=== PATIENT | male | born 1990 | race Hispanic/Latino ===

== ENCOUNTER 2020-02-22 14:50 | Emergency (ER) | payer MEDICAID, SELFPAY ==
--- NOTE | ~2020-02-22 | CT_ITS ---
EXAMINATION: CT abdomen pelvis w con EXAM DATE: 02/22/2020 16:24 INDICATION: Upper abdominal pain, hx pancreatitis . TECHNIQUE: Spiral CT of the abdomen and pelvis was performed following intravenous injection of 100 m L Omnipaque 350. Axial, coronal and sagittal images were reviewed. The dose-length product (DLP) fo r this examination was 465.55 mGy-cm. The exposure was tailored according to patient size (auto mA e xposure control), and iterative reconstruction (ASIR) was used as additional dose reduction technique . Comparison is made to prior examination from 10/09/2017. FINDINGS: Liver has a nodular contour with caudate and left liver lobe hypertrophy. Appearance consis tent with cirrhosis. The liver, spleen, adrenal glands and pancreas are otherwise unremarkable. The re are surgical clips in the gallbladder fossa. Some biliary duct dilation which is common finding f ollowing cholecystectomy. Portal and splenic veins are patent. Kidneys enhance symmetrically. Ther e is no hydronephrosis. There is a 3 mm left inferior calyceal stone. The prostate is unremarkable. The bladder is unremarkable. There is no retroperitoneal or pelvic lymphadenopathy. The appendix is normal. The stomach and small bowel are unremarkable. There is expected amount of c olonic stool. No free intraperitoneal gas. The heart is normal in size. There are no pericardial or pleural effusions. The lung bases are unremarkable. There are no osteoblastic or osteolytic les ions identified. Small umbilical fat-containing hernia. IMPRESSION: 1. No acute intra-abdominal findings. 2. Left nephrolithiasis. 3. Cirrhosis. Reviewed, dictated and finalized at location B. C BUSTER
[2020-02-22 15:18] VITALS: BP 141/92; PULSE 79; RESP 18; TEMP 35.6; O2SAT 96
--- NOTE | 2020-02-22 15:21 | PC.NURSE ---
patient brought back to ED room 11 with abdomen pain and nausea. hx of pancreatitis. patient is alert and oriented. does not appear to be in any distress. laughing and talking with his SO at the bedside. assessments documented. SL inserted. labs drawn.
[2020-02-22 15:22] LABS: Basophils Absolute Auto 0.1 K/mm3 (0.0-0.1); Basophils Percent Auto 1.2 % (0.2-1.2); Eosinophils Absolute Auto 0.4 K/mm3 (0-0.3); Eosinophils Percent Auto 5.2 % (0-4.4); Hematocrit 48.6 % (42.0-52.0); Hemoglobin 17.2 g/dL (14.0-18.0); Immature Granulocyte Absolute 0.01 K/mm3 (0.00-0.031); Immature Granulocyte Percent A 0.1 % (0-0.5); Lymphocytes Absolute Auto 2.57 K/mm3 (0.9-3.2); Lymphocytes Percent Auto 38.5 % (18.3-44.2); Mean Corpuscular HGB Conc 35.4 g/dl (32-36); Mean Corpuscular Hemoglobin 31.7 pg (26-34); Mean Corpuscular Volume 89.5 fl (80-100); Mean Platelet Volume 12.5 fl (7.4-10.4); Monocytes Absolute Auto 0.4 K/mm3 (0.1-0.6); Monocytes Percent Auto 6.6 % (2.6-8.5); Neutrophils Absolute Auto 3.2 K/mm3 (1.3-6.7); Neutrophils Percent Auto 48.4 % (45.5-73.1); Platelet Count Result 137 k/mm3 (150-375); Red Blood Count 5.43 M/mm3 (4.6-6.20); Red Cell Distribution Width 12.3 % (11.5-14.5); White Blood Count 6.7 K/mm3 (4.5-10.0)
[2020-02-22 15:31] LABS: Add Urine Microscopic? YES; Appearance Urine Clear (Clear); Bilirubin Urine Negative (Negative); Blood Urine Negative (Negative); Color Urine Yellow (Yellow); Glucose Urine UA Negative (Negative); Ketones Urine Negative (Negative); Leukocyte Esterase Ur Negative LEU/UL (Negative); Mucus Urine Rare /lpf; Nitrate Urine Negative (Negative); Protein Urine Negative (Negative); RBC Urine 0-2 /hpf (0-2); Specific Grav Ur 1.023 (1.001-1.035); Squamous Epithelial Cell Urine Rare /hpf (Few); WBC Urine 0-3 /hpf
--- NOTE | 2020-02-22 15:33 | PC.NURSE ---
patient reminded that we do need a urine specimen.
--- NOTE | 2020-02-22 15:40 | ED.ABDPAIN ---
HPI - Abdominal Pain General Chief Complaint: Abdominal Pain Stated Complaint: pancreatitis Time Seen by Provider: 02/22/20 15:07 Source: patient Mode of arrival: ambulatory Limitations: no limitations History of Present Illness HPI narrative: This is a 29 year old male that presents to the ER for increasing upper abdominal pain x 3 weeks. Reports history of pancreatitis and that this feels similar. Reports the pain is aching in nature and constant. Associated with nausea. Denies fever, vomiting, dysuria, hematuria, or diarrhea. Related Data Home Medications Medication Instructions Recorded Confirmed No Home Medications 02/22/20 Allergies Allergy/AdvReac Type Severity Reaction Status Date / Time No Known Allergies Allergy Verified 10/09/17 08:32 Review of Systems Review of Systems: Narrative: CONSTITUTIONAL: Denies fever CARDIOVASCULAR: Denies chest pain GASTROINTESTINAL: Reports abdominal pain, nausea. Denies vomiting, or diarrhea. GENITOURINARY: Denies dysuria or hematuria. All systems reviewed & are unremarkable except as noted in HPI and below PMFSH Surgical History Surgical History (Updated 02/22/20 @ 15:42 by Taryn Carrillo PA-C) History of cholecystectomy Social History Social History (Updated 02/22/20 @ 15:42 by Taryn Carrillo PA-C) Smoking status: Current every day smoker Exam Narrative: Exam Narrative: GENERAL: Well-appearing, well-nourished, and in no acute distress. HEAD: Normocephalic, atraumatic. EYES: EOMI. CHEST: Clear to auscultation. No respiratory distress. No wheezes rales or rhonchi HEART: Regular rate and rhythm. No murmur heard. Normal peripheral pulses. ABDOMEN: Soft, nondistended, normal active bowel sounds. Tender to palpation in the epigastrium and right upper quadrant, without guarding EXTREMITIES: Normal range of motion. No edema. SKIN: Warm, dry, no rash. NEURO: No focal deficits. Alert and oriented x3. PSYCH: Normal mood and affect Course Vital Signs Vital signs: Vital Signs Temperature 96.1 F L 02/22/20 15:18 Pulse Rate 79 02/22/20 15:18 Respiratory Rate 18 02/22/20 15:18 Blood Pressure 141/92 H 02/22/20 15:18 Pulse Oximetry 96 02/22/20 15:18 Temperature 96.1 F L 02/22/20 15:18 Pulse Rate 79 02/22/20 15:18 Respiratory Rate 18 02/22/20 15:18 Blood Pressure 141/92 H 02/22/20 15:18 Pulse Oximetry 96 02/22/20 15:18 MDM - Abdominal Pain MDM Narrative Medical decision making narrative: Patient presents to the emergency department for upper abdominal discomfort. He is afebrile and nontoxic-appearing. CBC is without leukocytosis. Metabolic panel with transaminitis consistent with patient's cirrhosis due to his history of alcoholism. UA without evidence of infection. CT scan abdomen and pelvis is without acute findings. Does show cirrhosis and nephrolithiasis. Patient updated on case findings. He is stable and felt appropriate for further outpatient evaluation. He will be given GI for follow-up. He was given warnings to return to the ER Lab Data Attestation: I reviewed the patient's lab results. Result diagrams: 02/22/20 15:13 02/22/20 15:13 Labs: Lab Results 02/22/20 02/22/20 02/22/20 Range/Units 15:13 15:13 15:13 WBC 6.7 (4.5-10.0) K/mm3 RBC 5.43 (4.6-6.20) M/mm3 Hgb 17.2 (14.0-18.0) g/dL Hct 48.6 (42.0-52.0) % MCV 89.5 (80-100) fl MCH 31.7 (26-34) pg MCHC 35.4 (32-36) g/dl RDW 12.3 (11.5-14.5) % Plt Count 137 L (150-375) k/mm3 MPV 12.5 H (7.4-10.4) fl Immature Gran % (Auto) 0.1 (0-0.5) % Neut % (Auto) 48.4 (45.5-73.1) % Lymph % (Auto) 38.5 (18.3-44.2) % [place] % (Auto) 6.6 (2.6-8.5) % Eos % (Auto) 5.2 H (0-4.4) % Baso % (Auto) 1.2 (0.2-1.2) % Lymph # (Auto) 2.57 (0.9-3.2) K/mm3 [place] # (Auto) 0.4 (0.1-0.6) K/mm3 Eos # (Auto) 0.4 H (0-0.3) K/mm3 Baso # (Auto) 0.1 (0.0-0.1) K/
[2020-02-22] MEDS: SODIUM CHLORIDE 0.9% IV 1,000 ML 999 ML IV CONT (16:02)
[2020-02-22] MEDS: ONDANSETRON INJ 4 MG/2 ML VIAL IV PUSH (16:02)
[2020-02-22] MEDS: MORPHINE SULFATE (*CRX) 4 MG/ML INJ IV PUSH (16:02)
--- NOTE | 2020-02-22 16:08 | PC.NURSE ---
patient medicated as ordered. SO in room. SO appears to be impaired or intoxicated with slurred speech and inappropriate commends. patient states that she is intoxicated . patient asking SO to be quiet etc. 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 patient is aware of current treatment plan.
[2020-02-22 16:09] LABS: Alanine Aminotransferase 184 U/L (4-50); Albumin Level 4.7 g/dL (3.5-5.1); Alkaline Phosphatase 238 U/L (38-126); Anion Gap 9 mmol/L (8-16); Aspartate Amino Transferase 105 U/L (17-59); Blood Urea Nitrogen 15 mg/dL (9-20); Calcium 9.9 mg/dL (8.4-10.2); Carbon Dioxide 27 mmol/L (22-30); Chloride 102 mmol/L (98-107); Estimated CRCL calculation 106 ml/min; Estimated Glomerular Filt Rate > 60; Glucose 114 mg/dL (75-110); Lipase 67 U/L (23-300); Sodium 138 mmol/L (137-145)
[2020-02-22 18:01] VITALS: BP 142/78; PULSE 77; RESP 18; O2SAT 100
--- NOTE | 2020-03-03 11:42 | PC.NURSE ---
LATE ENTRY This note is being entered to document information to the patient's record. The following information was omitted on [02/22/20], by [Stefanie Mendoza]. Stop time for NS 1700, Stop time for [place] was 1615.
== END 2020-02-22 18:02 | disposition home or self-care (01) ==
PROVIDERS: Emergency Provider Emergency Medicine
DX: R10.10 Upper abdominal pain, unspecified (principal); F17.200 Nicotine dependence, unspecified, uncomplicated; K74.60 Unspecified cirrhosis of liver; N20.0 Calculus of kidney
CPT/HCPCS: 36415; 74177; 80053; 81001; 83690; 85025; 96361; 96374; 96375; 99284; J0131; J2270; J2405; J7030; Q9967

== ENCOUNTER 2020-06-02 17:21 | Emergency (ER) | payer SELFPAY ==
--- NOTE | ~2020-06-02 | XR_ITS ---
EXAMINATION: XR chest 2V DATE: 06/02/2020 18:28 INDICATION: Left-sided chest pain TECHNIQUE: PA and lateral views of the chest were obtained. COMPARISON: None FINDINGS: The lungs are clear with no focal airspace opacities, pulmonary edema, pleural effusion or pneumothor ax. The cardiomediastinal silhouette is normal. Cholecystectomy clips in right upper quadrant. Visual ized bones and soft tissues are unremarkable. IMPRESSION: 1. No acute cardiopulmonary disease. Reviewed, dictated and finalized at location A. 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
[2020-06-02 17:40] VITALS: BP 136/85; PULSE 83; RESP 16; TEMP 36.1; O2SAT 99
--- NOTE | 2020-06-02 17:43 | ECG_ITS ---
Measurements Intervals [place] Rate: 68 P: 73 PA: 198 QRS: 65 QRSD: 109 T: 55 QT: 376 QTc: 401 Interpretive Statements SINUS RHYTHM WITH SINUS ARRHYTHMIA INCOMPLETE RIGHT BUNDLE BRANCH BLOCK BORDERLINE ECG Electronically Signed On 06-02-2020 18:21:33 [employer] by Andreas Lopez D.O.
[2020-06-02 17:52] LABS: Basophils Absolute Auto 0.1 K/mm3 (0.0-0.1); Basophils Percent Auto 1.5 % (0.2-1.2); Eosinophils Absolute Auto 0.3 K/mm3 (0-0.3); Hemoglobin 16.1 g/dL (14.0-18.0); Lymphocytes Absolute Auto 2.17 K/mm3 (0.9-3.2); Lymphocytes Percent Auto 46.3 % (18.3-44.2); Mean Corpuscular HGB Conc 35.8 g/dl (32-36); Mean Corpuscular Hemoglobin 32.1 pg (26-34); Mean Corpuscular Volume 89.6 fl (80-100); Mean Platelet Volume 12.1 fl (7.4-10.4); Monocytes Absolute Auto 0.3 K/mm3 (0.1-0.6); Monocytes Percent Auto 6.2 % (2.6-8.5); Neutrophils Absolute Auto 1.8 K/mm3 (1.3-6.7); Platelet Count Result 131 k/mm3 (150-375); Red Blood Count 5.02 M/mm3 (4.6-6.20); White Blood Count 4.7 K/mm3 (4.5-10.0)
[2020-06-02 18:01] LABS: INR 0.9; Prothrombin Time 12.7 Seconds (11.1-14.7)
[2020-06-02 18:02] LABS: Partial Thromboplastin Time 29.8 SECONDS (22.3-36.8)
[2020-06-02 18:04] LABS: Anion Gap 5 mmol/L (8-16); Blood Urea Nitrogen 15 mg/dL (9-20); Carbon Dioxide 28 mmol/L (22-30); Chloride 108 mmol/L (98-107); Estimated CRCL calculation 94 ml/min; Estimated Glomerular Filt Rate > 60; Glucose 106 mg/dL (75-110); Sodium 141 mmol/L (137-145)
[2020-06-02 18:15] LABS: Troponin I < 0.012 ng/mL (0.000-0.034)
--- NOTE | 2020-06-02 20:22 | ED.CHESTPAIN ---
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 HEAD: Normocephalic, atraumatic. EYES: PERRLA and EOMI. ENT: Nares clear, no rhinorrhea or epistaxis. Mucous membranes moist. CHEST: Clear to auscultation. No respiratory distress. No wheezes rales or rhonchi. Reproducible left upper chest wall tenderness to palpation HEART: Regular rate and rhythm. No murmur heard. Normal peripheral pulses. ABDOMEN: Soft, nontender, nondistended EXTREMITIES: Normal range of motion. No edema. SKIN: Warm, dry, no rash. NEURO: No focal deficits. Alert and oriented x3. PSYCH: Normal mood and affect. Course Course Emergency Course: Patient with reproducible left-sided chest wall tenderness to palpation no other deformities or abnormalities in his evaluation will be discharged home treated with anti-inflammatories hemodynamically stable ABCs and vital signs intact and stable Vital Signs Vital signs: Vital Signs Temperature 97.0 F L 06/02/20 17:40 Pulse Rate 83 06/02/20 17:40 Respiratory Rate 16 06/02/20 17:40 Blood Pressure 136/85 06/02/20 17:40 Pulse Oximetry 99 06/02/20 17:40 Temperature 97.0 F L 06/02/20 17:40 Pulse Rate 83 06/02/20 17:40 Respiratory Rate 16 06/02/20 17:40 Blood Pressure 136/85 06/02/20 17:40 Pulse Oximetry 99 06/02/20 17:40 MDM - Chest Pain MDM Narrative Medical decision making narrative: Patients EKGs and labs are without significant high risk changes. Cardiac risk factors were reviewed. Patient is felt likely to be low risk for ACS and reasonable for further risk stratification testing as an outpatient. Pain was not sudden or maximal in onset without tearing or ripping. quality. No other signs or symptoms to suggest aortic dissection. A low-risk Wells criteria is noted. PE is felt to be unlikely. No pneumonia or URI symptoms were seen on evaluation today. Patient is felt to b reasonable for continued evaluation as an outpatient. Lab Data Result diagrams: 06/02/20 17:46 06/02/20 17:46 Labs: Lab Results 06/02/20 06/02/20 06/02/20 Range/Units 17:46 17:46 17:46 WBC 4.7 (4.5-10.0) K/mm3 RBC 5.02 (4.6-6.20) M/mm3 Hgb 16.1 (14.0-18.0) g/dL Hct 45.0 (42.0-52.0) % MCV 89.6 (80-100) fl MCH 32.1 (26-34) pg MCHC 35.8 (32-36) g/dl RDW 13.0 (11.5-14.5) % Plt Count 131 L (150-375) k/mm3 MPV 12.1 H (7.4-10.4) fl Immature Gran % (Auto) 0.0 (0-0.5) % Neut % (Auto) 39.0 L (45.5-73.1) % Lymph % (Auto) 46.3 H (18.3-44.2) % [place] % (Auto) 6.2 (2.6-8.5) % Eos % (Auto) 7.0 H (0-4.4) % Baso % (Auto) 1.5 H (0.2-1.2) % Lymph # (Auto) 2.17 (0.9-3.2) K/mm3 [place] # (Auto) 0.3 (0.1-0.6) K/mm3 Eos # (Auto) 0.3 (0-0.3) K/mm3 Bas
[2020-06-02 20:47] VITALS: BP 125/58; PULSE 77; RESP 16; O2SAT 98
[2020-06-02 20:50] VITALS: BP 124/91; PULSE 72; RESP 17; O2SAT 97
[2020-06-02 21:07] LABS: Troponin I < 0.012 ng/mL (0.000-0.034)
== END 2020-06-02 20:51 | disposition home or self-care (01) ==
PROVIDERS: Family Medicine; Emergency Provider Emergency Medicine
DX: R07.89 Other chest pain (principal); F17.200 Nicotine dependence, unspecified, uncomplicated; I45.10 Unspecified right bundle-branch block
CPT/HCPCS: 36415; 71046; 80048; 84484; 85025; 85610; 85730; 93005; 99284

== ENCOUNTER 2023-06-04 09:51 | Emergency (ER) | payer SELFPAY ==
--- NOTE | ~2023-06-04 | CT_ITS ---
CT of the Abdomen and Pelvis: Indication: Abdominal pain Technique: 2.5 mm axial scans were obtained through the abdomen and pelvis following intravenous adm inistration of 100 cc of Omnipaque 350. Dose reduction technique was used on this scan by utilizing a utomated exposure control and iterative reconstruction technique. The dose-length product (DLP) was 4 49.25 mGy-cm. COMPARISON: 02/22/2020 Findings: Scans through the lung bases are unremarkable. Nodular contour of liver is compatible cirrhosis. Cholecystectomy clips are present. Spleen is enlarg ed, measuring 15 cm in length. The pancreas, adrenals and right kidney are within normal limits. Ther e is a 4.5 mm stone at the left UVJ, with mild left hydroureteronephrosis. No evidence of aortic aneu rysm. No lymphadenopathy. No bowel obstruction or bowel wall thickening. There is no evidence to suggest acute appendicitis. Images through the pelvis were performed. No pelvic mass seen. No ascites. Urinary bladder otherwise unremarkable. Impression: 4.5 mm left UVJ stone, with mild left hydroureteronephrosis. Cirrhotic liver with associated splenomegaly. Reviewed, dictated and finalized at location . 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 Cirrhotic liver with associated splenomegaly.
[2023-06-04 10:56] VITALS: BP 137/98; PULSE 55; RESP 12; O2SAT 100
[2023-06-04 10:58] VITALS: BP 137/98; PULSE 54; PULSE 63; RESP 15; O2SAT 100
[2023-06-04 11:38] LABS: Alanine Aminotransferase 224 U/L (6-50); Albumin Level 4.8 g/dL (3.5-5.1); Alkaline Phosphatase 278 U/L (38-126); Anion Gap 7 mmol/L (8-16); Aspartate Amino Transferase 137 U/L (17-59); Bilirubin,Total 1.7 mg/dL (0.2-1.3); Blood Urea Nitrogen 16 mg/dL (9-20); Calcium 9.8 mg/dL (8.4-10.2); Carbon Dioxide 26 mmol/L (22-30); Chloride 109 mmol/L (98-107); Estimated CRCL calculation 92 ml/min; Estimated Glomerular Filt Rate > 60; Glucose 129 mg/dL (65-110); Lipase 67 U/L (23-300); Potassium 3.9 mmol/L (3.4-5.0); Sodium 142 mmol/L (137-145)
[2023-06-04 11:55] LABS: Basophils Absolute Auto 0.1 K/mm3 (0.0-0.1); Eosinophils Absolute Auto 0.3 K/mm3 (0-0.3); Eosinophils Percent Auto 4.1 % (0-4.4); Hematocrit 47.8 % (42.0-52.0); Hemoglobin 15.8 g/dL (14.0-18.0); Immature Granulocyte Absolute 0.01 K/mm3 (0.00-0.031); Immature Granulocyte Percent A 0.2 % (0-0.5); Lymphocytes Percent Auto 19.9 % (18.3-44.2); Mean Corpuscular HGB Conc 33.1 g/dl (32-36); Mean Corpuscular Hemoglobin 31.3 pg (26-34); Mean Corpuscular Volume 94.7 fl (80-100); Mean Platelet Volume 13.8 fl (7.4-10.4); Monocytes Absolute Auto 0.3 K/mm3 (0.1-0.6); Monocytes Percent Auto 5.1 % (2.6-8.5); Neutrophils Absolute Auto 4.2 K/mm3 (1.3-6.7); Neutrophils Percent Auto 69.7 % (45.5-73.1); Platelet Count Result 96 k/mm3 (150-375); Red Blood Count 5.05 M/mm3 (4.6-6.20); Red Cell Distribution Width 13.2 % (11.5-14.5)
[2023-06-04 12:04] LABS: Appearance Urine Cloudy (Clear); Bacteria Urine None Seen /hpf; Bilirubin Urine 1+ (Negative); Blood Urine 3+ (Negative); Color Urine Dark Yellow (Yellow); Glucose Urine UA Negative (Negative); Ketones Urine Negative (Negative); Leukocyte Esterase Ur Negative LEU/UL (Negative); Nitrate Urine Negative (Negative); Non Pathogenic Casts 0-2; Protein Urine Negative (Negative); RBC Urine 21-50 /hpf (0-2); Specific Grav Ur 1.023 (1.001-1.035); Squamous Epithelial Cell Urine None seen /hpf (Few); WBC Urine 0-5 /hpf
[2023-06-04 12:12] LABS: Add Urine Microscopic? YES
--- NOTE | 2023-06-04 12:31 | ED.ABDPAIN ---
HPI - Abdominal Pain General Chief Complaint: Abdominal Pain Stated Complaint: left sided abd pain Time Seen by Provider: 06/04/23 10:47 Source: patient Mode of arrival: ambulatory Limitations: no limitations History of Present Illness HPI narrative: Patient is a 33 y/o male who presents to the ED with c/o LLQ abd pain. Patient reports pain began this morning, no pain yesterday. He has never had pain like this before. Reports slight radiation of pain around to left lower back. Developed N/V after the onset of the pain. Also reports feeling like he needs to have a BM but unable to. Did pass a small amount of stool this morning. Endorses difficulty urinating, dysuria. Denies hematuria. Denies fevers. Denies Hx of diverticulitis or kidney stones. Has not taken anything for pain. Related Data Allergies Allergy/AdvReac Type Severity Reaction Status Date / Time No Known Allergies Allergy Verified 06/04/23 10:55 Review of Systems Review of Systems: CONSTITUTIONAL: Denies fever, chills, or sweats. CARDIOVASCULAR: Denies chest pain. RESPIRATORY: Denies dyspnea. GASTROINTESTINAL: see HPI. GENITOURINARY: See HPI. MUSCULOSKELETAL: See HPI. All systems reviewed & are unremarkable except as noted in HPI and below PMFSH Surgical History Surgical History History of cholecystectomy Social History Social History Smoking status: Current every day smoker Exam Narrative: GENERAL: Mildly uncomfortable appearing, well-nourished, non-toxic, in no acute distress. HEAD: Normocephalic, atraumatic. RESPIRATORY: Airway patent, respirations nonlabored. Clear to auscultation bilaterally, no rales, rhonchi, wheezing. CARDIOVASCULAR: Regular rate and rhythm without murmurs, rubs, or gallops. ABDOMINAL: Soft, focal tenderness to palpation in left lower abdomen, left lateral abdomen, nondistended. Normoactive BS. MUSCULOSKELETAL: Moves all extremities. No gross deformities. SKIN: Warm, dry, normal color. NEURO: A&O X3. Speech clear. Cranial nerves II-XII grossly intact. Steady gait. No ataxic movements. PSYCHIATRIC: Appropriate mood and affect. Normal interaction. Course Vital Signs Vital signs: Vital Signs Pulse Rate 55 L 06/04/23 10:56 Respiratory Rate 12 06/04/23 10:56 Blood Pressure 137/98 H 06/04/23 10:56 Pulse Oximetry 100 06/04/23 10:56 Oxygen Delivery Room Air 06/04/23 10:56 Temperature 97.8 F 06/04/23 14:30 Pulse Rate 60 06/04/23 14:30 Respiratory Rate 15 06/04/23 14:30 Blood Pressure 114/72 06/04/23 14:30 Pulse Oximetry 97 06/04/23 14:30 Oxygen Delivery Room Air 06/04/23 10:56 MDM - Abdominal Pain MDM Narrative Medical decision making narrative: Patient presented to ED with 1 day hx of LLQ abd pain. Associated with N/V, dysuria. VSS upon arrival. Patient in no acute distress but does appear to be in pain. He had not taken anything for pain prior to arrival. CBC w/o leukocytosis, does show mild thrombocytopenia. CMP with hyperbili, transaminitis. Appears consistent with patient's previous records. Normal lipase. Patient w/o any epigastric or RUQ tenderness on exam at this time. UA with evidence of blood, no signs of infection. Suspicious for kidney stone. CT abd/pelvis obtained and showing 4.5mm L UVJ stone. Mild hydroureteronephrosis. Consistent with exam and patient's clinical picture. He has never had kidney stones before. Updated patient on lab and imaging results. CT did also show evidence of liver cirrhosis. Patient is a former alcoholic, has not had ETOH in 5 years. Will refer to GI for this. Patient's pain significant improved with supportive therapy in the ED. Resting comfortably on reeval. Will be discharged at this time. Will send pain/nausea meds/flomax to pharmacy for further management at home. Advised to f/u with Urology for further evaluation. Marco
[2023-06-04 12:35] LABS: Large Platelets Present; Platelet Estimate Decreased (Adequate)
[2023-06-04 12:37] LABS: Atypical Lymphocytes Present; Schistocytes None Seen (NORMAL); Smudge Cells PRESENT
[2023-06-04] MEDS: SODIUM CHLORIDE 0.9% IV 1,000 ML 999 ML IV CONT (12:43)
[2023-06-04] MEDS: ONDANSETRON INJ 4 MG/2 ML VIAL IV PUSH (12:43)
[2023-06-04 12:45] VITALS: BP 131/87; PULSE 51; RESP 17; O2SAT 100
[2023-06-04] MEDS: MORPHINE SULFATE (*CRX) 4 MG/ML INJ IV PUSH (12:45)
[2023-06-04] MEDS: KETOROLAC 30 MG/ML VIAL (*BKC) IV PUSH (13:25)
[2023-06-04 14:30] VITALS: BP 114/72; PULSE 60; RESP 15; TEMP 36.6; O2SAT 97
== END 2023-06-04 14:33 | disposition home or self-care (01) ==
PROVIDERS: Emergency Provider Physician Assistant
DX: N20.1 Calculus of ureter (principal); K74.60 Unspecified cirrhosis of liver
CPT/HCPCS: 36415; 74177; 80053; 81001; 83690; 85025; 85055; 96361; 96374; 96375; 99284; J1885; J2270; J2405; J7030; Q9967